=== PATIENT | male | born 1995 | race Hispanic/Latino ===

== ENCOUNTER → 2023-12-05 | Outpatient (CLI) | payer OTHER | END | disposition home or self-care (01) | LOC: RAH 11:37 → EEVIPCON 11:37 | PROVIDERS: ATTEND Family Medicine | DX: J84.10 Pulmonary fibrosis, unspecified (principal); I89.8 Other specified noninfective disorders of lymphatic vessels and lymph nodes; J98.4 Other disorders of lung; Z11.1 Encounter for screening for respiratory tuberculosis | CPT/HCPCS: 71250 ==